=== PATIENT | male | born 1965 | race African-American/Black ===

== ENCOUNTER 2016-07-24 21:15 | Emergency (ER) | payer MEDICAID ==
[~2016-07-24] VITALS: Ht 170.2 cm; Wt 68.0 kg
[~2016-07-24 21:15] MED LIST: LEXAPRO20 MG PO
[2016-07-24 21:55] VITALS: BP 148/89
--- NOTE | 2016-07-24 22:13 | NUR ---
TO ER BED 8
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
[2016-07-24] MEDS ORDERED: BACITRACIN OINT 500 UNITS/GM PKT TP ONE (22:55)
[2016-07-24] MEDS ORDERED: IBUPROFEN 600 MG TAB PO ONE (22:55)
[2016-07-24] MEDS ORDERED: AMOXIL/CLAVULANATE 875/125 MG 1 TAB PO ONE (22:55)
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
[2016-07-24] MEDS ORDERED: AMOXIL/CLAVULANATE 875/125 MG 1 TAB ONE (23:17)
[2016-07-24 23:43] VITALS: BP 132/78
--- NOTE | 2016-07-24 23:44 | NUR ---
Patient discharged with v/s stable. Written and verbal after care instructions given and explained. Patient verbalized understanding. Ambulatory with steady gait. All questions addressed prior to discharge. Advised to follow up with PMD.
== END 2016-07-24 23:43 | disposition home or self-care (01) ==
LOC: MED 21:15
DX: S61.432A Puncture wound without foreign body of left hand, initial encounter (principal); J45.909 Unspecified asthma, uncomplicated; I10 Essential (primary) hypertension; W54.0XXA Bitten by dog, initial encounter; Y93.89 Activity, other specified; Y92.830 Public park as the place of occurrence of the external cause; Y99.8 Other external cause status
CPT/HCPCS: 73120; 90471; 90715; 99284; Q0092

== ENCOUNTER 2023-11-26 12:39 | Emergency (ER) | payer MEDICAID ==
[~2023-11-26] VITALS: Ht 152.4 cm; Wt 62.2 kg
[~2023-11-26 12:39] MED LIST changes: +ESCI20TA PO; -LEXAPRO20 MG PO
[2023-11-26 12:59] VITALS: BP 139/89; PULSE 78; RESP 17; TEMP 98; O2SAT 99
[2023-11-26] MEDS ORDERED: CEPH-588 PO (13:01)
[2023-11-26 13:05] VITALS: BP 132/86; PULSE 85; RESP 18; TEMP 98; O2SAT 97
== END 2023-11-26 13:08 | disposition home or self-care (01) ==
LOC: MED 12:39
DX: S00.86XA Insect bite (nonvenomous) of other part of head, initial encounter (principal); Z79.2 Long term (current) use of antibiotics; Z79.899 Other long term (current) drug therapy; W57.XXXA Bitten or stung by nonvenomous insect and other nonvenomous arthropods, initial encounter; Y93.89 Activity, other specified; Y92.89 Other specified places as the place of occurrence of the external cause; Y99.8 Other external cause status
CPT/HCPCS: 99283

== ENCOUNTER 2024-04-11 08:54 | Emergency (ER) | payer MEDICAID ==
[~2024-04-11] VITALS: Ht 167.6 cm; Wt 637.3 kg
[~2024-04-11 08:54] MED LIST changes: +CEPH-588 PO
[2024-04-11 08:56] VITALS: BP 144/92; PULSE 91; RESP 16; TEMP 98.4; O2SAT 96
[2024-04-11 09:40] VITALS: BP 144/92; PULSE 88; RESP 16; TEMP 98.4; O2SAT 96
== END 2024-04-11 11:08 | disposition home or self-care (01) ==
LOC: MED 08:54
DX: S30.0XXA Contusion of lower back and pelvis, initial encounter (principal); M25.552 Pain in left hip; J44.9 Chronic obstructive pulmonary disease, unspecified; I10 Essential (primary) hypertension; F12.90 Cannabis use, unspecified, uncomplicated; Z79.899 Other long term (current) drug therapy; W18.39XA Other fall on same level, initial encounter; Y92.89 Other specified places as the place of occurrence of the external cause; Y93.89 Activity, other specified; Y99.8 Other external cause status
CPT/HCPCS: 73502; 99283